=== PATIENT | female | born 1955 | race Caucasian/White ===

== ENCOUNTER → 2016-10-29 | Outpatient (CLI) | payer OTHER ==
[~2016-10-29] MED LIST: CYCL-36; DARV; ESTR1.5; ESTR1.5T2; FENO134C PO; FERR200T PO; FURO1TAB62 PO; LASI20TA; LOVA20TA PO; MAGN400T2 PO; MAXA10TA2; NEUR400C PO; PRIL20TA2; RANI300T; SOMA350T; SOMA350T PO; SUCR1TAB6; SUMA85TA PO; VITA1000 PO; ZANT300T PO
--- NOTE | 2016-10-30 09:29 | RSPPFT ---
DATE OF PROCEDURE: 10/29/16 COMMENTS: VOLUMES DYNAMIC: FVC and FEV1 mildly reduced. STATIC; FRC and TLC mildly reduced; RV normal. FLOWS: FEV1% normal; FEF 25-75 moderately reduced. DIFFUSION: Normal. FLOW VOLUME LOOP: Pattern of variable intrathoracic airways obstruction. IMPRESSION: Mild obstructive and restrictive ventilatory defect with no significant reduction in diffusion. There is improvement post-bronchodilator.
== END ==
LOC: PHRSP 07:32
PROVIDERS: ATTEND Internal Medicine
DX: R06.02 Shortness of breath (principal)
CPT/HCPCS: 94060; 94620; 94726; 94729

== ENCOUNTER 2016-11-17 11:19 | Day surgery (SDC) | payer OTHER ==
--- NOTE | 2016-11-02 22:03 | MB ---
cc: DEN HERNANDEZ M.D., R. STEVEN DATE OF CONSULTATION 11/02/2016 REASON FOR CONSULTATION: This is for an outpatient bronchoscopy being scheduled for next week. HISTORY OF THE PRESENT ILLNESS Ms. Nguyen is a 61-year-old white female whom I first saw on October 27, 2016 and was considering scheduling her for a needle biopsy of a pulmonary nodule. Dictation was done on 10/27/2016 and I refer you back to that for the details. She is a heavy smoker with a chronic cough and a CT scan revealed a 1.9 cm mass in the left lower lobe as well as a small mass in the left adrenal gland. She had a PET scan subsequent to that visit with a 2.2 cm nodule intensely hypermetabolic with an SUV of about 20, and in addition to that a hilar lymph node which is also positive. The left adrenal gland reveals no uptake. It appears as though she has a primary lung carcinoma with a hilar lymph node. I saw her back in the office today and she has essentially no symptoms related to this. She does continue to smoke heavily anywhere from one to two packs per day, and has done so for many years. Pulmonary functions though are adequate at 70% with mild obstruction. PAST MEDICAL HISTORY 1. Pituitary tumor removed in . There has been no evidence of recurrence for that and no obvious endocrine deficiencies related to that. 2. She has a history of reflux disease and benign colon polyps. 3. 4. No prior history of malignancy or significant cardiovascular disease. PAST SURGICAL HISTORY 1. She has had a cervical fusion for degenerative joint disease. 2. Surgery on both hands for carpal tunnel syndrome. 3. And has significant degenerative arthritis of the lumbosacral spine as well. 4. She has had previous appendectomy. 5. Cholecystectomy. 6. And hysterectomy. ALLERGIES CODEINE WHICH CAUSED ITCHING AND SWELLING. FAMILY HISTORY AND SOCIAL HISTORY Unchanged from documentation one week ago. PHYSICAL EXAMINATION VITAL SIGNS: 97, 124/70, pulse 60, respiratory rate 18, saturation 95% on room air. HEENT: Sclerae anicteric. Pharynx is clear. NECK: The neck veins are flat. No adenopathy in neck or supraclavicular regions. LUNGS: Some minimal scattered congestion in her lung. No wheezing. CARDIOVASCULAR: Regular rhythm. No harsh murmur. No audible S3. EXTREMITIES: No peripheral edema or cyanosis. IMAGING PET CT as noted above reveals a left midlung nodule, very positive and a left hilar lymph node. I have thoroughly reviewed the options with Ms. Nguyen and her today. A needle biopsy or a bronchoscopy with EBUS particularly in light of the positive lymph node. After thoroughly reviewing this, including a description of the procedure in simple terms so that she knows what it involves and revealing potential complications including anesthetic risk, pneumothorax or hemorrhage, she is agreeable to proceed with a diagnostic bronchoscopy with biopsy. We have also discussed the possibility that this will not be a definitive procedure, we may not establish the diagnosis in which case she would need additional studies in light of the high suspicion for malignancy. R. Rudi Segovia MD RSW/KK /4:28 PM /9:50 PM RAFA
--- NOTE | 2016-11-03 10:19 | MB ---
cc: DEN HERNANDEZ M.D., R. STEVEN DATE OF CONSULTATION 10/27/2016 REASON FOR CONSULTATION Outpatient lung biopsy for a pulmonary nodule being scheduled. HISTORY Ms. Nguyen is a 61-year-old white female who has smoked since the age of 15, currently smoking two packs per day and has over a 100 pack-year smoking history. She presented for a follow-up CT scan on September 15 which reveals a 1.9 cm mass in the left lower lobe which is somewhat spiculated and in comparison to the previous has enlarged. That is over the course of roughly one year. She also has two smaller nodules in the left upper lobe and the right upper lobe which have not changed. She also has a 1.6 cm mass in the left adrenal gland, but this was found on the prior scan as well. It is unchanged and thought to be an adenoma. She has a PET/CT scan scheduled for later today. Her only symptom is a cough with congestion which is chronic. She also has significant prior sinus disease to which she attributes her cough. She has been followed by ENT for about six years and has had two surgeries on the sinuses, one in 1994 and one in 2001. She has had no chest pain, hemoptysis and she does not experience shortness of breath. No significant prior pulmonary history other than an occasional bronchitis and a serious illnesses as a child which sounds like it could have been pneumonia. PAST MEDICAL HISTORY She had a pituitary tumor removed in 1994. She has been followed carefully since then by a neurologist. She was also followed by endocrine for what sounds like a year or two and no deficiencies have been identified. She is on no hormonal therapy other than estrogen. GERD and benign colon polyps. She also has significant arthritis particularly in the lumbosacral and cervical spine. She has had a cervical fusion. She has also had surgery on her hands and feet and bilateral carpal tunnel surgery. Additional surgery: 1. Appendectomy 2. Cholecystectomy 3. Hysterectomy No prior history of malignancy. No history of cardiovascular disease or stroke. ALLERGIES CODEINE WHICH CAUSES ITCHING AND SWELLING. Codeine which causes itching and swelling. FAMILY HISTORY Father of complications of COPD and CHF also sounds like he had chronic leukemia. Mother had heart failure. Three siblings, one healthy two apparently are drug addicted. Two sons, one with asthma one with allergies. SOCIAL HISTORY living with her of 34 years. She is on disability for her arthritis. She used to work at [employer]. They have six dogs at home. She has a toddler lead teacher dog becki Ibarra who is with her today. Smoking noted above. No alcohol use. I should also mention she has had allergy testing in the past and was positive for grass, mold, dust. cedar and dogs. REVIEW OF SYSTEMS Weight is high, but stable. No visual complaints. No anginal chest pain or chronic edema. No orthopnea or PND. No current reflux symptoms on her medication. MEDICATIONS Medications are reviewed and recorded in her chart. She takes no blood thinners or aspirin. PHYSICAL EXAMINATION VITAL SIGNS: 126/70, pulse 60, temperature 97, RR 18, sat 97% room air. HEAD, EYES, EARS, NOSE, AND THROAT: Sclerae anicteric. Pharynx is clear. NECK: Veins are flat. No adenopathy in the neck or supraclavicular region. She does have an anterior cervical scar from the fusion. CHEST: Minimal congestion. No wheezing. No basilar rales. Regular rhythm. No harsh murmur. No audible S3. ABDOMEN: Soft. EXTREMITIES: No peripheral edema, cyanosis or clubbing. CT scan is reviewed with she and her . She clearly has a nodular density in the left lower lobe. Superior segment appears to be in the superior segment 1.9 cm and radiologist sees no enlarged mediastinal or hilar lymph nodes. I have reviewed this with she and her . She has a PET/CT scheduled today and based on that, we will decide what the best approach to biopsy will be. She also needs pulmonary functions which are being scheduled. Once we have a definitive diagnosis, we can discuss appropriate therapy. I have reviewed this with them thoroughly. I answered their questions to their satisfaction and further diagnostic and/or therapeutic intervention will depend on the results of these ongoing diagnostic studies. R. MD TUAN Collazo/LUIS /9:43 AM /10:22 AM
[2016-11-17] VITALS (8 sets, daily range): BP systolic 94–124; BP diastolic 50–62; PULSE 55–66; RESP 18–20; TEMP 97.5–98.1; O2SAT 93–98
[~2016-11-17] VITALS: Ht 152.4 cm; Wt 79.1 kg
[~2016-11-17 11:19] MED LIST changes: -CYCL-36; -DARV; -ESTR1.5; -LASI20TA; -MAXA10TA2; -RANI300T; -SOMA350T; -SUCR1TAB6
[2016-11-17] MEDS ORDERED: RESP: ALBUTEROL 2.5 MG/3 ML NEB (PRN) INH (12:15)
[2016-11-17] MEDS ORDERED: RESP: LIDOCAINE HCL 4% TOPICAL 4 ML KIT NEB NEB PRN (12:15)
[2016-11-17] MEDS ORDERED: SODIUM CHLOR 0.9% 1000 ML IV SCH (12:15)
[2016-11-17] MEDS ORDERED: SODIUM CHLOR 0.9% 1000 ML INJ 1,000 ML IV SCH (12:15)
[2016-11-17] MEDS ORDERED: LIDOCAINE 1%/EPINEPHrine 1:100,000 SOLN 20 ML VIAL ONE (13:29)
[2016-11-17] MEDS ORDERED: MIDAZOLAM HCL 5 MG/5 ML VIAL ONE (13:52)
[2016-11-17] MEDS ORDERED: fentaNYL CITRATE 250 MCG/5 ML AMP ONE (13:52)
--- NOTE | 2016-11-17 14:21 | PD.RAD ---
Post CT Procedure Prog Note Pre Procedure Diagnosis: (1) Lung mass Post Procedure Diagnosis: (1) Lung mass Procedure Date: Nov 17, 2016 Supervising Radiologist: Reid Veras Anesthesia: Conscious Sedation Plan of Activity Patient to Unit: [facility] Patient Condition: Good Additional Comments: 3 x 20 guage cores. No PTX See PACS Report for procedural detail/treatment Reid Veras MD Nov 17, 2016 14:20
[2016-11-17] MEDS ORDERED: oxyCODONE/ACETAMINOPHEN 5 MG/325 MG TAB PO PRN (14:30)
--- NOTE | 2016-11-17 16:38 | RADRPT ---
EXAM DATE/TIME: 11/17/2016 16:14 [facility] COMPARISON: CT NEEDLE BIOPSY LUNG, LEFT, November 17, 2016, 13:56. INDICATIONS : Post lung biopsy. MEDICAL HISTORY : None. SURGICAL HISTORY : None. ENCOUNTER: Initial ACUITY: 1 day PAIN SCORE: 2/10 LOCATION: Left chest FINDINGS: A single frontal expiratory view of the chest was performed. The lungs are symmetrically aerated and clear. No evidence of pneumothorax. Mediastinal structures are in the midline. The cardio-mediastinal contours and bronchopulmonary markings are unremarkable for an expiratory exam . Osseous structures are intact. CONCLUSION: 1. No pneumothorax identified following CT guided biopsy. The patient's known left lung mass is only faintly visualized. Dany Alexander MD on November 17, 2016 at 16:35 Board Certified Radiologist. This report was verified electronically.
--- NOTE | 2016-11-17 17:01 | RADRPT ---
EXAM DATE/TIME: 11/17/2016 13:56 [facility] COMPARISON: No previous studies available for comparison. INDICATIONS : Left lung mass. SEDATION TIME: 20 minutes BIOPSY SITE: Left lung MEDICATION(S): 1.) 4 mg midazolam (Versed) IV 2.) 200 mcg fentanyl (Sublimaze) IV DEVICE(S): 1.) 18 gauge Laguna blunt needle 5cm 2.) 20 gauge Temno core biopsy needle 11cm MEDICAL HISTORY : None. SURGICAL HISTORY : None. ENCOUNTER: Initial ACUITY: 1 day PAIN SCORE: 0/10 LOCATION: Left chest A total of three core specimen(s) were obtained and sent to the laboratory for pathologic evaluation. PROCEDURE: 1. CT guided lung biopsy. 2. Conscious sedation with continuous EKG and oximetry monitoring. Prior to the procedure informed consent was obtained. Any appropriate prior imaging studies were rev iewed. Using automated exposure control and adjustment of the mA and/or kV according to patient size, radiation dose was kept as low as reasonably achievable to obtain optimal diagnostic quality images. DICOM format image data is available electronically for review and comparison. The site was prepped in a sterile fashion. Full sterile technique was used, including cap, mask, ashley rile gloves and gown and a large sterile sheet. Hand hygiene and 2% chlorhexidine and/or betadine/al cohol prep was utilized per protocol for cutaneous antisepsis. The skin and subcutaneous tissues wer e infiltrated with local anesthetic solution. With CT guidance the previously identified target was localized. Biopsy was performed using the presc ribed needle as above. In total, three 20 gauge core biopsies were obtained. Adequate hemostasis was obtained with compression at the puncture site. Follow-up CT scan reveals no pneumothorax. Conscious sedation was performed with the prescribed dosages and duration as above in the presence of an independent trained radiology nurse to assist in the monitoring of the patient. EKG and oximetry remained stable throughout the procedure. The patient tolerated the procedure well and there were no complications. The patient was sent to Radiology Outpatient Unit in stable condition. CONCLUSION: Uncomplicated CT guided biopsy. Reid Veras MD on November 17, 2016 at 16:59 Board Certified Radiologist. This report was verified electronically.
== END 2016-11-17 18:22 | disposition home or self-care (01) ==
LOC: CSDC 11:19 → HRIP 11:23 → CSDC 18:22
PROVIDERS: ATTEND Internal Medicine
DX: C34.92 Malignant neoplasm of unspecified part of left bronchus or lung (principal); F17.200 Nicotine dependence, unspecified, uncomplicated; R05 Cough
CPT/HCPCS: 32405; 71010; 77012; 88305; 88341; 88342; J2250; J3010; J7030

== ENCOUNTER 2017-08-09 14:39 | Emergency (ER) | payer OTHER ==
[~2017-08-09] VITALS: Ht 152.4 cm; Wt 74.0 kg
[2017-08-09 14:54] VITALS: BP 131/63; PULSE 75; RESP 18; TEMP 97.8; O2SAT 96
[2017-08-09] MEDS ORDERED: OXYC1CAP PO (15:11)
[2017-08-09] MEDS ORDERED: ALPR0.5T3 PO (15:11)
[2017-08-09] MEDS ORDERED: MAPA500T13 PO (15:11)
--- NOTE | 2017-08-09 15:37 | PD ---
HPI Chief Complaint: Back/ Neck Pain or Injury Time Seen by Provider: 15:19 Travel History International Travel<30 days: No Contact w/Intl Traveler<30days: No Traveled to known affect area: No History of Present Illness HPI This is a 61-year-old female here with low back pain after twisting 2 days ago. She reports she has had pain like this in the past with low back strains. Pain is localized to the low back and nonradiating. It is worse with movement and relieved with rest. Symptom severity is moderate. She denies fever, chills , incontinence, saddle anesthesia, paresthesia or weakness in extremities. She is requesting a shot of "cortisone". She reports her back does this every couple of years and is treated with a shot of steroids. PFSH Past Medical History Medical History: Denies Significant Hx Cancer: No Cardiovascular Problems: No Diabetes: No Diminished Hearing: No Endocrine: No Genitourinary: No Hepatitis: No Hiatal Hernia: No Immune Disorder: No Musculoskeletal: No Neurologic: Yes (DEGENERATIVE DISC DISEASE) Psychiatric: No Reproductive: No Respiratory: No Migraines: Yes Thyroid Disease: No ?: Not Past Surgical History Abdominal Surgery: Yes (C- SECTION X2; APPENDIX, GALL BLADDER) AICD: No Appendectomy: Yes Cardiac Surgery: No Cholecystectomy: Yes Ear Surgery: No Eye Surgery: No Genitourinary Surgery: No Gynecologic Surgery: No Hysterectomy: Yes Joint Replacement: No Neurologic Surgery: Yes ("BRAIN SURGERY 1995 TUMOR REMOVAL) Oral Surgery: No Pacemaker: No Thoracic Surgery: No Other Surgery: Yes (SINUS SURG) Social History Alcohol Use: No Tobacco Use: Yes (1 PPD) Substance Use: No Allergies-Medications (Allergen,Severity, Reaction): Coded Allergies: codeine (Unverified Allergy, Severe, Itching, 08/09/17) Reported Meds & Prescriptions Reported Meds & Active Scripts Active Reported Alprazolam 0.5 Mg Tab 0.5 Mg PO TID PRN Oxycodone (Oxycodone HCl) 5 Mg Cap 5 Mg PO Q3HR PRN Mapap Extra Strength (Acetaminophen) 500 Mg Tab 1,000 Mg PO HS PRN Soma (Carisoprodol) 350 Mg Tab 350 Mg PO QID PRN Treximet (Sumatriptan-Naproxen) 85-500 Mg Tab 1 Tab PO ONCE PRN May take a second dose after 2 hours if needed. Maximum 2 tabs in 24 hour period. Neurontin (Gabapentin) 400 Mg Cap 400 Mg PO TID Lasix (Furosemide) 20 Mg Tab 20 Mg PO DAILY Estropipate 1.5 Mg Tab BID Lovastatin 20 Mg Tab 20 Mg PO DAILY Fenofibrate Micronized 134 Mg Cap 134 Mg PO DAILY Prilosec (Omeprazole Magnesium) 20 Mg Tab 40 BID Feosol (Ferrous Sulfate) 200 Mg Tab 65 Mg PO DAILY Vitamin D-1000 (Cholecalciferol) 1,000 Unit Tab 2,000 Units PO DAILY Magnesium Oxide 400 Mg Tab 400 Mg PO BID Review of Systems Except as stated in HPI: all other systems reviewed are Neg General / Constitutional: No: Fever Eyes: No: Visual changes HENT: No: Headaches Cardiovascular: No: Chest Pain or Discomfort Respiratory: No: Shortness of Breath Gastrointestinal: No: Abdominal Pain Genitourinary: No: Dysuria Physical Exam Narrative GENERAL: Alert and well-appearing 7-year-old female SKIN: Warm and dry. HEAD: Normocephalic. EYES: No scleral icterus. No injection or drainage. NECK: Supple, trachea midline. No JVD or lymphadenopathy. CARDIOVASCULAR: Regular rate and rhythm without murmurs, gallops, or rubs. RESPIRATORY: Breath sounds equal bilaterally. No accessory muscle use. GASTROINTESTINAL: Abdomen soft, non-tender, nondistended. MUSCULOSKELETAL: No cyanosis, or edema. Normal strength and sensation in lower extremities. BACK: + Tenderness to the left lumbar paravertebral musculature. No midline spine tenderness. No CVA tenderness. Data Data Last Documented VS Vital Signs Date Time Temp Pulse Resp B/P (MAP) Pulse Ox O2 Delivery O2 Flow Rate FiO2 08/09/17 14:54 97.8 75 18 131/63 (85) 96 MDM Medical Decision Making Medical Screen Exam Complete: Yes Emergency Medical Condition: Yes Differential Diagnosis Lumbar strain, herniated disc, metastasis Narrative Course 61-year-old female here with left low back pain after twisting injury several days ago. She is neurologically intact. No midline spine tenderness. Tenderness of the left lumbar paravertebral musculature. She does have a history of lung CA is currently under treatment. We did discuss risk of metastasis. She reports this pain is similar to pain she has had prior in her back which was musculoskeletal. She does have follow-up appointment this week with her oncologist and will discuss the back pain with him if it is not improved with the Decadron shot. Diagnosis Primary Impression: Low back pain Qualified Codes: M54.5 - Low back pain Referrals: Primary Care Physician Additional Instructions: Follow-up with her primary doctor. Follow-up with her oncologist as we discussed this week if pain is unimproved Disposition: 01 DISCHARGE HOME Condition: Stable Barbara Zavala Aug 09, 2017 15:37
[2017-08-09] MEDS ORDERED: DEXAMETHASONE SOD PHOS 4 MG/ML VIAL IM ONE (15:45)
== END 2017-08-09 16:07 | disposition home or self-care (01) ==
LOC: PHEFT 14:39
DX: M54.5 Low back pain (principal); X50.1XXA Overexertion from prolonged static or awkward postures, initial encounter; C34.90 Malignant neoplasm of unspecified part of unspecified bronchus or lung; F17.200 Nicotine dependence, unspecified, uncomplicated
CPT/HCPCS: 96372; 99283; J1100